=== PATIENT | female | born 1940 | race Two or more races ===

== ENCOUNTER 2022-07-06 10:27 | Emergency (ER) | payer OTHER ==
[~2022-07-06] VITALS: Ht 170.2 cm; Wt 72.6 kg
[2022-07-06] MEDS ORDERED: VALSARTAN-HCTZ1 EAC2 (11:26)
[2022-07-06] MEDS ORDERED: ATORVASTATIN CA20 MG (11:26)
[2022-07-06] MEDS ORDERED: JANUVIA100 MG (11:26)
[2022-07-06] MEDS ORDERED: DILTIAZEM ER240 M3 (11:27)
== END 2022-07-06 14:27 | disposition home or self-care (01) ==
LOC: ER 10:27
DX: M25.551 Pain in right hip (principal); M54.50 Low back pain, unspecified; I10 Essential (primary) hypertension; E78.00 Pure hypercholesterolemia, unspecified; E11.9 Type 2 diabetes mellitus without complications; Z79.84 Long term (current) use of oral hypoglycemic drugs